=== PATIENT | male | born 1965 | race Caucasian/White ===

== ENCOUNTER 2019-10-06 04:31 | Emergency (ER) | payer OTHER ==
[~2019-10-06] VITALS: Ht 172.7 cm; Wt 111.1 kg
[~2019-10-06 04:31] MED LIST: LEVAQUIN 750 M750 MG PO; NOHOMEMEDICATIONS
[2019-10-06 05:11] LABS: ABSOLUTE BASOPHILS 0.1 thou/uL (0.0-0.2); ABSOLUTE EOSINOPHILS 0.2 thou/uL (0.0-0.7); ABSOLUTE LYMPHOCYTES 3.2 thou/uL (0.8-5.3); ABSOLUTE MONOCYTES 0.6 thou/uL (0.0-1.2); ABSOLUTE NEUTROPHILS 4.5 thou/uL (1.6-8.1); BASOPHILS 0.6 %; EOSINOPHILS 1.9 %; HEMATOCRIT 45.9 % (42.0-52.0); HEMOGLOBIN 16.2 gm/dL (14.0-18.0); LYMPHOCYTES 37.9 %; MCH 31.9 pg (26.0-34.0); MCHC 35.3 g/dL (28.0-37.0); MCV 90.5 fL (80.0-100.0); MONOCYTES 6.9 %; MPV 9.6 fl. (7.2-11.1); NUCLEATED RBCS 0 /100WBC; PLATELET COUNT* 205 thou/uL (150-400); POLYS 52.7 %; RBC 5.07 mil/uL (4.50-6.00); RDW-CV 13.2 % (10.5-14.5); WBC 8.4 thou/uL (4.0-11.0)
[2019-10-06 05:21] LABS: CALCIUM 8.4 mg/dL (8.5-10.1); CREATININE 1.4 mg/dL (0.6-1.3); POTASSIUM 3.7 mmol/L (3.5-5.1)
[2019-10-06 05:25] LABS: PROTIME 10.3 Seconds (9.20-11.50)
[2019-10-06 05:36] LABS: ALBUMIN 3.7 g/dL (3.4-5.0); TOTAL BILIRUBIN 0.4 mg/dL (<0.1-1.0); TOTAL PROTEIN 7.7 g/dL (6.4-8.2)
[2019-10-06] MEDS ORDERED: PRILOSEC OTC20 MG PO (06:40)
[2019-10-06] MEDS ORDERED: NITROSTAT0.4 M1 PO (06:40)
[2019-10-06 07:56] VITALS: BP 130/87
--- NOTE | 2019-10-06 12:40 | EKG ---
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
== END 2019-10-06 07:59 | disposition home or self-care (01) ==
LOC: M.ERS 04:31
PROVIDERS: Emergency Medicine
DX: R07.89 Other chest pain (principal); J45.909 Unspecified asthma, uncomplicated; M10.9 Gout, unspecified; Z91.041 Radiographic dye allergy status; Z88.8 Allergy status to other drugs, medicaments and biological substances; Z91.013 Allergy to seafood

== ENCOUNTER 2020-06-11 18:39 | Emergency (ER) | payer OTHER ==
[~2020-06-11] VITALS: Ht 172.7 cm; Wt 111.1 kg
[~2020-06-11 18:39] MED LIST changes: +NITROSTAT0.4 M1 PO; +PRILOSEC OTC20 MG PO
[2020-06-11 18:49] VITALS: BP 131/88
[2020-06-11 19:13] LABS: ABSOLUTE EOSINOPHILS 0.2 thou/uL (0.0-0.7); ABSOLUTE LYMPHOCYTES 3.2 thou/uL (0.8-5.3); ABSOLUTE MONOCYTES 0.5 thou/uL (0.0-1.2); ABSOLUTE NEUTROPHILS 3.8 thou/uL (1.6-8.1); BASOPHILS 0.6 %; EOSINOPHILS 2.6 %; HEMATOCRIT 45.8 % (42.0-52.0); HEMOGLOBIN 15.4 gm/dL (14.0-18.0); LYMPHOCYTES 40.9 %; MCH 30.4 pg (26.0-34.0); MCHC 33.6 g/dL (28.0-37.0); MCV 90.4 fL (80.0-100.0); MONOCYTES 6.1 %; MPV 9.3 fl. (7.2-11.1); NUCLEATED RBCS 0 /100WBC; PLATELET COUNT* 191 thou/uL (150-400); POLYS 49.8 %; RBC 5.07 mil/uL (4.50-6.00); RDW-CV 12.9 % (10.5-14.5); WBC 7.7 thou/uL (4.0-11.0)
[2020-06-11 19:15] LABS: CALCIUM 8.9 mg/dL (8.5-10.1); CREATININE 1.3 mg/dL (0.6-1.3); POTASSIUM 3.5 mmol/L (3.5-5.1)
[2020-06-11 19:20] LABS: ALBUMIN 3.4 g/dL (3.4-5.0); TOTAL BILIRUBIN 0.3 mg/dL (<0.1-1.0); TOTAL PROTEIN 7.3 g/dL (6.4-8.2)
[2020-06-11 19:24] LABS: URINE BILIRUBIN NEGATIVE (Negative); URINE BLOOD NEGATIVE (Negative); URINE CLARITY CLEAR; URINE KETONES NEGATIVE (Negative); URINE LEUKOCYTES-REFLEX 1+ (Negative); URINE NITRITE-REFLEX NEGATIVE (Negative); URINE PROTEIN NEGATIVE (Negative)
[2020-06-11] MEDS ORDERED: FLAGYL500 M1 PO (19:26)
[2020-06-11] MEDS ORDERED: ONDANSETRON ODT4 MG PO (19:26)
[2020-06-11 19:34] LABS: URINE GLUCOSE-RANDOM TRACE (Negative)
[2020-06-11 19:36] LABS: URINE COLOR YELLOW
[2020-06-11 19:39] LABS: SQUAMOUS >10 Many /LPF (0-3); WBC CLUMPS Few (None Seen)
[2020-06-11 19:40] LABS: CASTS None Seen /LPF (None Seen); CRYSTALS None Seen /LPF (None Seen); MUCUS 4-6 Moderate strn/LPF (None Seen); URINE RBC None Seen /HPF (0-2)
== END 2020-06-11 19:37 | disposition home or self-care (01) ==
LOC: M.ERS 18:39
PROVIDERS: Physician Assistant
DX: Z20.2 Contact with and (suspected) exposure to infections with a predominantly sexual mode of transmission (principal); J45.909 Unspecified asthma, uncomplicated; Z91.041 Radiographic dye allergy status; Z91.013 Allergy to seafood; Z91.048 Other nonmedicinal substance allergy status

== ENCOUNTER 2020-07-26 13:32 | Emergency (ER) | payer OTHER ==
[~2020-07-26] VITALS: Ht 177.8 cm; Wt 83.9 kg
[~2020-07-26 13:32] MED LIST changes: +FLAGYL500 M1 PO; +ONDANSETRON ODT4 MG PO
[2020-07-26] MEDS ORDERED: COLCHICINE0.6 MG PO (14:00)
[2020-07-26] MEDS ORDERED: HYDROCODON-ACE1 EAC7 PO ×2 (14:00→14:08)
[2020-07-26 14:22] VITALS: BP 139/80
== END 2020-07-26 14:22 | disposition home or self-care (01) ==
LOC: M.ERS 13:32
DX: M79.671 Pain in right foot (principal); R60.0 Localized edema; J45.909 Unspecified asthma, uncomplicated; Z91.041 Radiographic dye allergy status; Z88.8 Allergy status to other drugs, medicaments and biological substances; Z91.013 Allergy to seafood

== ENCOUNTER 2020-10-11 02:10 | Emergency (ER) | payer OTHER ==
[~2020-10-11] VITALS: Ht 172.7 cm; Wt 104.3 kg
[~2020-10-11 02:10] MED LIST changes: +COLCHICINE0.6 MG PO; +HYDROCODON-ACE1 EAC7 PO
[2020-10-11 02:42] LABS: URINE BILIRUBIN NEGATIVE (Negative); URINE BLOOD TRACE (Negative); URINE CLARITY CLEAR; URINE COLOR YELLOW; URINE GLUCOSE-RANDOM NEGATIVE (Negative); URINE KETONES NEGATIVE (Negative); URINE LEUKOCYTES-REFLEX 1+ (Negative); URINE NITRITE-REFLEX NEGATIVE (Negative); URINE PROTEIN NEGATIVE (Negative); URINE UROBILINOGEN 0.2 E.U./dl (0.2-1.0)
[2020-10-11 02:57] LABS: CASTS None Seen /LPF (None Seen); SQUAMOUS 0-3 Few /LPF (0-3)
[2020-10-11 02:58] LABS: BACTERIA-REFLEX 1-9 Few /HPF (None Seen); CRYSTALS None Seen /LPF (None Seen); URINE RBC 0-2 Rare /HPF (0-2); URINE WBC-REFLEX 6-15 Few /HPF (0-5)
[2020-10-11 03:56] VITALS: BP 120/74
== END 2020-10-11 03:56 | disposition home or self-care (01) ==
LOC: M.ERS 02:10
PROVIDERS: Emergency Medicine
DX: Z20.2 Contact with and (suspected) exposure to infections with a predominantly sexual mode of transmission (principal); J45.909 Unspecified asthma, uncomplicated; Z91.041 Radiographic dye allergy status; Z91.013 Allergy to seafood; Z79.899 Other long term (current) drug therapy